=== PATIENT | male | born 1975 | race Caucasian/White ===

== ENCOUNTER 2021-07-27 20:57 | Emergency (ER) | payer BC, SELFPAY ==
[2021-07-27] VITALS (16 sets, daily range): BP systolic 93–130; BP diastolic 53–85; PULSE 83–118; RESP 16–18; TEMP 37.6; O2SAT 96–99
--- NOTE | 2021-07-27 20:59 | W.ED.GENAD ---
Discharge Plan Disposition Patient Disposition: [facility] Condition: Stable Discharge Details Clinical Impression: Submandibular space infection Primary Care Provider: Unknown,Unknown ED Provider: Marcelo Meyer and Carmelo Rx's Prescriptions: No Action ibuprofen 800 mg Tablet 800 mg PO Q6H RF: 0 clindamycin HCl 150 mg Capsule 150 mg PO Q6H RF: 0 Medical Decision Making Given the patient's fever, trismus, pain with swallowing must consider oral pharyngeal abscess despite negative dental x-rays and clindamycin. Airway currently intact and vital signs good other than tachycardia. IV established and fluids started. Unasyn given. Valium given for the trismus. Patient had taken ibuprofen with decent relief of pain. Laboratory studies sent. CT scan of the neck ordered. Valium did not help with the trismus. Still unable to open mouth to any degree to allow for visualization of the oropharynx. White count is normal. Tachycardia resolved with fluids. CT scan shows extensive changes to the right submandibular, masseter, parapharyngeal areas. No definite fluid collection although fluid is present. Patient remains comfortable here with no airway compromise. Images sent to [facility] and case reviewed with ENT. Recommend IV Decadron. Concern for airway compromise identified and need for transfer and higher level of care. Unfortunately, [facility] without ability to accept patient. Discussed with [facility] ENT. In agreement that patient requires transfer and higher level of care. Accepted to the emergency department at [facility] for further evaluation and consultation with ENT. Arranging transport for patient is difficult given the potential for airway compromise in route. Would require RSI and if failure cricothyrotomy to secure airway. Helicopter are not flying due to weather. [facility] without critical care transport tonight. [facility] critical care ground transport not available till morning. [facility] critical care ground not available. [facility] called back and will take air crew out since unable to fly and come and get patient by ambulance. Lab Data Lab results reviewed: Yes I reviewed the patient's lab results. HPI General Mode of arrival: ambulatory. Date/Time Provider Initiated Documentation: 07/27/21 20:59. Limitations to Documentation: no limitations. Information obtained by: patient and RN notes reviewed. HPI Narrative: Patient presents to ED with fever. Patient reports developing a toothache in the right lower side of his mouth earlier in the week. He was seen by his dentist and had x-rays obtained with no evidence of infection or findings suggestive of tooth problem. He was referred to an peanut farmer for further evaluation. This appointment was supposed to be on Thursday, yesterday. However, he developed a fever and had to cancel this appointment due to Covid concerns. He did have testing done yesterday but does not have the results. His own dentist started him on clindamycin yesterday due to the fever and continued jaw pain. He now has inability to open his mouth or chew. He is able to swallow liquids with some discomfort. He is not having difficulty breathing. Does seem to have swelling in the right side of his face and neck. He continues to have fever. He was brought in for further evaluation by his . He denies having cough, shortness of breath, chest pain, abdominal pain, vomiting, diarrhea, rash, myalgia, arthralgia. Does have headache but feels that it is related to the jaw pain more than anything. Related Data Home Medications Medication Instructions Recorded Confirmed clindamycin HCl 150 mg PO Q6H 07/27/21 07/27/21 ibuprofen 800 mg PO Q6H 07/27/21 07/27/21 Allergies Allergy/AdvReac Type Severity Reaction Status Date / Time No Known Allergies Allergy Unverified 07/27/21 21:06 Review of Systems Narrative: 07/25 Review of Systems completed and is negative except as stated above in HPI (Systems reviewed: Const, Eyes, ENT, Resp, CV, GI, , MSK, Skin, Neuro) [facility] Medical History No significant past medical history Social History Smoking/Tobacco Use Status: Never Smoking risk assessment performed?: Yes Alcohol Intake: never Drug use: Never Substance use type: does not use Do you feel safe at home: Yes Do you feel safe in your relationship?: Yes Exam Narrative Exam Narrative: Const: WDWN male in NAD. HEENT: NC/AT. Slight right facial swelling. Trismus present. Unable to visualize OP. No obvious gingival lesions/swelling. TMs normal. Eyes: Normal conjunctiva and sclera. Neck: Supple. Trachea midline. Minimal right side swelling/tenderness. Minimal anterior adenopathy. Lungs: Normal respiratory effort. Lungs are clear. Cor: RRR without murmur/gallop. Good radial pulses. GI: Soft. ND. Neuro: A+O x 3. Normal speech, mentation, gait. Cranial nerves II - XII grossly intact. No gross motor or sensory deficit. Ext: No C/C/E. Skin: Warm and dry without rash.
--- NOTE | 2021-07-27 21:15 | DI.CT_ITS ---
Exam(s) CT NECK W EXAM: CT NECK W CLINICAL HISTORY: fever, trismus, right neck pain. TECHNIQUE: Imaging Protocol: Axial computed tomography images with coronal and sagittal reformatted images were created and reviewed. CONTRAST MATERIAL: Intravenous: Omnipaque 350 Contrast volume:100 mL COMPARISON: No exams were available for comparison FINDINGS: Visualized orbits and orbital soft tissues: Within normal limits. Visualized paranasal sinuses: Within normal limits. Nasopharynx: Within normal limits. Oropharynx: There is an enlarged right palatine tonsil. There is mild edema seen in the right paraph aryngeal space but no focal fluid collection is seen to suggest an abscess at this time. Hypopharynx: Within normal limits. Larynx: Within normal limits. Retropharyngeal space: Within normal limits. Parotids/submandibular: The right submandibular gland appears enlarged compared to the left. The pa rotid glands are unremarkable. Thyroid gland: Within normal limits. Lymphadenopathy: Mildly enlarged reactive lymph nodes in the right neck particularly in the submandi bular region. Trachea: Within normal limits. Lung apices: Within normal limits. Bones: Within normal limits. Carotids/Jugular: Within normal limits. Soft tissues: There is mild soft tissue stranding in the right submandibular space. IMPRESSION: There is enlargement of the right submandibular gland and the right palatine tonsil suspicious for an infectious or inflammatory process. Mild edematous changes are seen in the soft tissues of the righ t neck, particularly in the right submandibular region. No focal fluid collection is seen to suggest an abscess at this time. Mild reactive lymph nodes are seen in the right submandibular region. RADIATION DOSE DELIVERED: 356.71mGy.cm Total DLP 356.71mGy.cm Total DLP DATA REPOSITORY: All CT scans at this facility are submitted to the National Radiology Data Registry (NRDR) Dose Index Registry (DIR) with the [employer] ([employer]). RADIATION OPTIMIZATION: All CT scans at this facility use at least one of these dose optimization te chniques: automated exposure control; mA and/or kV adjustment per patient size (includes targeted exa ms where dose is matched to clinical indication); or iterative reconstruction.
[2021-07-27 21:32] LABS: Abs Immature Grans 0.01 10^3/uL (0.0-0.06); Absolute Basophil Count 0.03 10^3/uL (0.0-0.2); Absolute Eosinophil Count 0.01 10^3/uL (0.0-0.7); Absolute Lymphocyte Count 0.78 10^3/uL (1.2-3.4); Absolute Monocyte Count 0.88 10^3/uL (0.1-0.8); Basophils % 0.4; Eosinophils % 0.1; HCT 42.5 % (40.0-50.0); HGB 14.6 g/dL (13.5-17.5); Immature Grans % 0.1; Lymphocytes % 10.1; MCH 29.4 pg (27.0-33.0); MCHC 34.4 % (32.0-36.0); MCV 85.5 fL (80-95); MPV 10.1 fL (8.0-11.0); Monocytes % 11.4; Neutrophils % 77.9; Nucleated RBC 0 %; Platelet Count 172 10^3/uL (130-400); RBC 4.97 10^6/uL (4.36-5.78); RDW 11.7 % (11.8-14.1); RDW-SD 36.1 fL; WBC 7.71 10^3/uL (4.4-10.8)
[2021-07-27 21:44] LABS: Anion Gap 11.5 mmol/L (3-11); BUN 14 mg/dL (7-18); CO2 26.5 mmol/L (21.0-32.0); CREATININE 0.9 mg/dL (0.70-1.30); Chloride 98 mmol/L (98-107); Glucose 114 mg/dL (74-106); Potassium 3.9 mmol/L (3.5-5.1); Sodium 136 mmol/L (136-145)
[2021-07-27] MEDS: Normal Saline - Diluent 50 ML VIAL IV (21:52)
[2021-07-27] MEDS: Omnipaque 350 MG/ML 100 ML BTL IJ (21:52)
[2021-07-27] MEDS: diazePAM 10 MG/2 ML SYR 5 MG IVP (21:58)
[2021-07-27] MEDS: Lactated Ringers 1,000 ML 1000 ML IV (22:05)
[2021-07-27] MEDS: AMPICILLIN/SULBACTAM 3 GM in Normal Saline 100 ML IVPB (22:08)
[2021-07-27 22:15] LABS: Source Nasal/Nares
--- NOTE | 2021-07-27 22:59 | DI.VRAD_ITS ---
PROCEDURE INFORMATION: Exam: CT Neck With Contrast Exam date and time: 07/27/2021 9:21 PM Age: 45 years old Clinical indication: Patient HX: Fever, trismus, right neck pain TECHNIQUE: Imaging protocol: Computed tomography images of the neck with contrast. COMPARISON: No relevant prior studies available. FINDINGS: Nasopharynx: Unremarkable. Oropharynx: The right palatine tonsil is enlarged compared to the left. Fat stranding is observed in the right parapharyngeal space, asymmetric to the left. No fluid collections are observed. Hypopharynx: Unremarkable. Larynx: Normal epiglottis. Retropharyngeal space: Normal retropharyngeal space. Submandibular/Parotid glands: The right submandibular gland is edematous with indistinct fat planes. The submandibular duct is not dilated, and no stones are appreciated in the submandibular duct. There are no fluid collections. Parotid glands are normal. Parotid ducts are not dilated. No parotid stones are observed. Thyroid: Normal thyroid. Lymph nodes: Right level 1b submandibular lymph nodes are enlarged, asymmetric to the left. Prominent right level 2a lymph nodes are also observed, asymmetric to the left, largest 1.7 cm. Trachea: Unremarkable trachea. Lungs: Lung apices are clear. Bones/joints: The mandible is intact, without erosive lesion or fracture. There is no lucency observed around mandibular roots. No specific dental caries are observed, although the exam does not exclude dental caries. Disc space narrowing with endplate sclerosis and osteophytes noted C4-C5 and C5-C6. Negative for fracture in the cervical spine. Negative for endplate destructive lesion. Vasculature: Carotid and jugular vessels are unremarkable. Soft tissues: Fluid accumulation is noted at the right floor of the mouth in the submandibular space, lateral and inferior to the mylohyoid muscle. The right lower facial skin and platysma are thickened, and mild subcutaneous edema is observed. Indistinct tissue planes are observed in the right statistical secretary space, particularly around the medial and lateral pterygoid muscles. IMPRESSION: 1. Right submandibular space inflammatory changes and fluid accumulation. 2. Edema and inflammatory changes extend into the right statistical secretary and right parapharyngeal spaces. 3. Enlarged right palatine tonsil. 4. Infectious or inflammatory source at the right submandibular gland and/or right tonsil suspected. 5. No evidence of abscess currently. The patient is at risk for abscess, given the visible inflammatory changes and fluid accumulation. 6. No evidence of mandibular osteomyelitis or significant dental disease. 7. No evidence of salivary duct stones. 8. Probable reactive lymphadenopathy at the right levels 1b and 2a. Dictated and Authenticated by: Jason Arteaga MD. Ordering:RAOUL Robertson MD
[2021-07-27] MEDS: Lactated Ringers 1,000 ML 200 ML IV (23:50)
[2021-07-27 23:54] LABS: COVID-19 PCR Negative (Negative)
[2021-07-27] MEDS: Dexamethasone 10 MG/ML VIAL IVP (23:56)
[2021-07-28] VITALS (32 sets, daily range): BP systolic 100–128; BP diastolic 59–84; PULSE 78–88; O2SAT 94–100
[2021-07-28] MEDS: Ampicillin/Sulbactam 3 GM VIAL (03:40)
[2021-07-28] MEDS: Normal Saline 100 ML 200 ML (03:40)
--- NOTE | 2021-08-09 13:05 | ED.FU.B_ITS ---
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 On record review patient was transferred to [facility] for treatment airway compromise he was given Unasyn IV piggyback department prior to his transfer. Per unit assistant patient is no longer a patient at [facility]. Call made to patient for follow-up and no answer, voice mail left.
--- NOTE | 2021-08-09 13:05 | W.ED.FU ---
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 On record review patient was transferred to [facility] for treatment airway compromise he was given Unasyn IV piggyback department prior to his transfer. Per assistant unit forester patient is no longer a patient at [facility]. Call made to patient for follow-up and no answer, voice mail left.
--- NOTE | 2021-08-12 18:31 | W.ED.FU ---
Date of service: 08/12/21 Time of Service: 18:32 Follow Up Plan: 1831: Patient called back, regarding previous follow-up call, Call made to patient, he is currently taking Metronidazole for a possible C-diff infection, he states he is feeling well otherwise and original tooth problem was extracted. He is also taking a pro-biotic.
== END 2021-07-28 03:37 ==
PROVIDERS: Emergency Provider Emergency Medicine
DX: K12.2 Cellulitis and abscess of mouth (principal); M27.2 Inflammatory conditions of jaws; R50.9 Fever, unspecified; R25.2 Cramp and spasm; M54.2 Cervicalgia
CPT/HCPCS: 36415; 70491; 80048; 87040; 87077; 87635; 96361; 96365; 96375; 99285; 85025; J0295; J1100; J3360; J3490